=== PATIENT | male | born 1990 | race Caucasian/White ===

== ENCOUNTER 2021-12-17 10:51 | Emergency (ER) | payer BC, SELFPAY ==
--- NOTE | ~2021-12-17 | XR_ITS ---
EXAMINATION: XR HAND, LEFT CLINICAL INFORMATION: Pain COMPARISON: None TECHNIQUE: PA, lateral, and oblique views of the left hand. FINDINGS: Visualized portion of the distal radius and ulna demonstrate no fracture. Carpal rows are maintained. No carpal bone fracture. Angulated fracture through the distal aspect of the fifth metacarpal. Fracture line does not appear to extend to the articular surface. Other metacarpals and phalanges demonstrate no fracture. There is mild soft tissue swelling of the lateral and. XR/XR hand LT min 3V IMPRESSION: Fifth metacarpal fracture.
[2021-12-17 11:04] VITALS: BP 130/80; PULSE 80; O2SAT 100; BMI 24.4
--- NOTE | 2021-12-17 11:09 | ED.OVERDOSE ---
HPI - Overdose General Chief Complaint: Overdose Stated Complaint: overdose Time Seen by Provider: 12/17/21 11:09 Source: patient Mode of arrival: ambulatory Limitations: no limitations History of Present Illness HPI Narrative: This is a 31-year-old male past medical history significant for opiate abuse disorder presenting to the emergency department status post being found unresponsive in his car, patient tells me that a bystander called 911 as they found him unconscious in his car, they broke his car window, police arrived and gave patient 8 mg of nasal Narcan. Patient tells me that he injected 2 bags of heroin, he tells me he uses this much she usually. This was an accidental overdose, no intent of suicide. He tells me he is thinking about detox however he is not ready to go or seek resources today. I told him I would give him a handout for detox is in the area. Patient tells me he is also experiencing left hand pain he tells me he fell off of a ladder 2 days ago landing on his left hand. When he fell he did not hit his head or lose consciousness. He has full range of motion and is able to move his hand, wrist and fingers. He has no other complaints at this time. Denies chest pain, shortness of breath, nausea, vomiting, abdominal pain, headache, dizziness, weakness, suicidal ideation, homicidal ideation. He denies visual, auditory and tactile hallucinations MD complaint: accidental overdose Onset (ago): minute(s) (30) Timing confirmed by: other Intent: other (unintentional overdose ) How Overdose Was Discovered: other (bystandard called 911) Context: Accidental Overdose: wanted to get high Related Data Previous Rx's Medication Instructions Recorded naloxone 4 mg/actuation nasal 4 mg INTRANASAL Q2M #2 ea 12/17/21 spray (Narcan) Allergies Allergy/AdvReac Type Severity Reaction Status Date / Time No Known Allergies Allergy Verified 12/17/21 11:09 Review of Systems Review of Systems: Constitutional : No Weight loss, No Fever, No Chills, No Fatigue, No Malaise ENT/Mouth : No sore throat, No Rhinorrhea Eyes: No Eye Pain, No Swelling, No Redness Cardiovascular : No Chest Pain, No SOB, No Dyspnea on Exertion, No Orthopnea, No Edema, No Palpitations Respiratory : No Cough, No Sputum, No Wheezing Gastrointestinal : No Nausea, No Vomiting, No Diarrhea, No Constipation, No abdominal Pain, No Hematochezia, No Melena Genitourinary : No Dysuria, No Urinary Frequency, No Hematuria, Musculoskeletal : + joint pain, No Myalgias, + Joint Swelling Skin : No Skin Lesions, No rash Neuro : No Weakness, No Numbness, No Dizziness, No Headache Psych : No Anxiety/Panic, No Depression All other systems reviewed and are negative Yes all other systems are reviewed and are negative [facility] Past Medical History Attestation statement: The following information was validated with the patient. Source: old records reviewed and nursing notes reviewed Social History Social History Advance Directives: No Advance Directives Information Provided: No Physical Exam Vital Signs: Vital Signs: Last Vital Signs Temp 99.1 F 12/17/21 11:10 Pulse 84 12/17/21 11:10 BP 142/84 H 12/17/21 11:10 BMI result Body Mass Index 24.4 VSS Appearance: Alert.? Oriented X3.? No acute distress.? Head: Normocephalic, atraumatic, no step-offs or deformities Eyes: Pupils equal, round and reactive to light.? ENT: Pharynx normal.? Neck: Normal inspection.? Neck supple.? CVS: Normal heart rate and rhythm.? Pulses normal.? Respiratory: No respiratory distress.? Breath sounds normal.? Abdomen: Soft and nontender.? Skin: Skin warm and dry.? Normal skin color.? Normal skin turgor.?+ track choudhary to b/l upper extremitites. Extremities: No lower extremity edema.? No calf ttp. 5/5 strength to bilateral upper and lower extremities + ecchymosis and pain to palpation to dorsal and palmar aspect of left hand. Full range of motion to bilateral hands, fingers, wrist. 2+ pulses radial equal bilateral. Back: No midline tenderness, no C-spine tenderness, full range of motion, no CVA tenderness bilaterally Neuro: Oriented X 3.? No motor deficit.? No sensory deficit. Course Reevaluation(s) Reevaluation #1: Patient noted to have a fracture to the 5th metacarpal. At this time patient will be placed in an ulnar gutter splint. He will be given outpatient follow-up with hand surgery. Patient has good pulses, capillary refill less than 2 seconds, sensory and motor intact. No evident ligament or tendon involvement. Time: 11:52 Reevaluation #2: An ulnar gutter splint was applied. Patient was ambulating with a steady gait. Nurse reported to me that patient eloped. Prior to him eloping I did offer him detox, I did send Narcan to his pharmacy. He did refuse detox at this time however disaster recovery consultant also spoke to him and offered him resources. Time: 12:51 MDM - Overdose MDM Narrative Medical decision making narrative: 1105 31 yo m presents to ed w/ accidental heroin od after injecting 2 bags, received 8mg intranasal narcan. Not SI or HI. Reports left hand pain s/p fall off ladder Physical examination significant for an individual who is awake and oriented x3. Regular rate and rhythm. Lungs clear. Abdomen soft nontender nondistended. Ecchymosis and pain to palpation to left hand. Images in the chart. Plan at this time is to obtain an x-ray. Medical Records Attestation: I reviewed the patient's medical records. Lab Data Attestation: I reviewed the patient's lab results. Critical Care Time Critical Care Time Critical Care Time: No Discharge Plan Discharge Clinical Impression: Drug overdose, Fx metacarpal Patient Disposition: Elopement Instructions: Adult Overdose (ED), Opioid Use Disorder (ED) Additional Instructions: Take your medications as prescribed. If you were prescribed antibiotics today, it is important that you take your medication to their entirety, do not skip any doses, do not finish them early. Follow-up with your primary care provider this week. Return to the emergency department with new or worsening symptoms. In case of emergency call 911 I offered you detox however you do not feel ready at this time. That is okay. I have given you a handout on detox is in the area. I have also sent Narcan tear pharmacy this can save her life. Sent to [facility] on [address] Prescriptions: New naloxone [Narcan] 4 mg/actuation spray,non-aerosol 4 mg intranasal Q2M Qty: 2 0RF Rx Instructions: spray 1 dose into ONE nostril; alternate nostrils w each dose until help arrives Referrals: Shawna Stevenson MD [Physician] - 2 days
[2021-12-17 11:10] VITALS: BP 142/84; PULSE 84; TEMP 37.3
--- NOTE | 2021-12-17 11:50 | MHC.RECOVSUP ---
Recovery Support note: Patient is a 31 year old [place] speaking male who presented to [facility] after an accidental overdose. Patient is declining SUDE at this time. Patient is not interested in MOUD resources however accepted information on ATS facilities. Patient reports he was sober for years and relapsed today. Patient cannot identify a cause for the relapse, stating I don't know what happened. Discussed relapse prevention and recovery supports.
== END 2021-12-17 13:03 | disposition left against medical advice (07) ==
PROVIDERS: Emergency Provider Emergency Medicine
DX: S62.307A Unspecified fracture of fifth metacarpal bone, left hand, initial encounter for closed fracture (principal); T40.1X1A Poisoning by heroin, accidental (unintentional), initial encounter; Y92.810 Car as the place of occurrence of the external cause; W11.XXXA Fall on and from ladder, initial encounter; Y93.9 Activity, unspecified; Y92.9 Unspecified place or not applicable; Y99.9 Unspecified external cause status; Z79.899 Other long term (current) drug therapy
CPT/HCPCS: 73130; 99283